=== PATIENT | female | born 1985 | race Caucasian/White ===

== ENCOUNTER 2017-10-13 12:13 | Inpatient (IN) | payer OTHER ==
[~2017-10-13 12:13] MED LIST: Bupivacaine 0.25% HCL 30 ML VIAL ONE; Bupivacaine HCl 0.5%/Epinephrine 1:200,000/PF 30 ml Vial ONE; Lidocaine 2% MPF 10 ML AMP (For Epidural Use) ONE; ePHEDrine/0.9% NaCl/PF SYRINGE 50 mg/10 ml ONE
[2017-10-13] MEDS ORDERED: NS w/ Oxytocin 10 units 500 ML IV SCH ×2 (20:08)
[2017-10-13] MEDS ORDERED: Ibuprofen 800 MG TAB PO PRN (20:08)
[2017-10-13] MEDS ORDERED: Misoprostol 200 MCG TAB PR PRN (20:08)
[2017-10-13] MEDS ORDERED: Promethazine HCl 25 MG/ML VIAL IM PRN (20:08)
[2017-10-13] MEDS ORDERED: Lidocaine 1% (PF) 30 ML VIAL SC PRN (20:08)
[2017-10-13] MEDS ORDERED: Acetaminophen 500 MG TAB PO PRN (20:08)
[2017-10-13] MEDS ORDERED: NS / Oxytocin 40 units/1000ml 1,000 ML IV PRN (20:08)
[2017-10-13] MEDS ORDERED: HYDROcodone/Acetaminophen 5/325 mg Tablet PO PRN (20:08)
[2017-10-13] MEDS ORDERED: Ondansetron HCl/PF 4 MG/2 ML Vial IVP PRN (20:08)
[2017-10-13] MEDS ORDERED: Acetaminophen/Codeine 30-300mg Tablet PO PRN (20:08)
[2017-10-13 20:30] LABS: Hemoglobin 11.6 g/dL (12.0-16.0); Mean Corpuscular HGB CONC 35.1 g/dL (32.0-36.0); Mean Corpuscular Hemoglobin 31.7 pg (27.0-31.0); Mean Corpuscular Volume 90.2 fL (78.0-98.0); Mean Platelet Volume 8.8 fL (7.4-10.4); Platelet Count 187 thou/uL (130-400); RBC Distribution Width 13.5 % (11.5-14.5); Red Blood Cell (RBC) Count 3.66 mill/uL (4.20-5.40)
[2017-10-13 21:25] LABS: Syphilis Antibody Nonreactive (Nonreactive); Syphilis Antibody Index 0.03 S/CO (<1.00 Non-Reactive)
[2017-10-13 22:54] LABS: HBSAg Index 0.42 S/CO (0-0.99); Hep B Surf Ag Non-Reactive S/CO (NonReactive)
[2017-10-14] MEDS ORDERED: DISCONTINUE ALL PREVIOUS NARCOTICS FS SCH (00:15)
[2017-10-14] MEDS ORDERED: Fentanyl 100 MCG/2 ML VIAL ONE (00:56)
[2017-10-14] MEDS ORDERED: ePHEDrine/0.9% NaCl/PF SYRINGE 50 mg/10 ml SLOW IVP PRN (01:14)
[2017-10-14] MEDS ORDERED: Acetaminophen 325 MG TAB PO PRN ×2 (01:14→15:56)
[2017-10-14] MEDS ORDERED: Promethazine HCl 25 MG/ML VIAL IM PRN ×2 (01:14→15:00)
[2017-10-14] MEDS ORDERED: Naloxone HCl 0.4 mg/ml Vial IVP PRN ×4 (01:14→15:00)
[2017-10-14] MEDS ORDERED: Lactated Ringer's 500 ML IV PRN (01:14)
[2017-10-14] MEDS ORDERED: Ondansetron HCl/PF 4 MG/2 ML Vial IVP PRN ×4 (01:14→15:56)
[2017-10-14] MEDS ORDERED: Eucerin (Mineral Oil/Petrolatum,White) 30 gm Jar TOP PRN ×2 (01:14→15:00)
[2017-10-14] MEDS ORDERED: diphenhydrAMINE 50 MG/ML VIAL IVP PRN ×2 (01:14→15:00)
[2017-10-14] MEDS ORDERED: Communication Order-Pharmacy FS SCH ×2 (01:15→15:00)
[2017-10-14] MEDS ORDERED: fentaNYL Citrate/PF 400 MCG, Bupivacaine 0.5% 20 ML in Sodium Chloride 0.9% 72 ML EPIDURAL SCH (01:15)
[2017-10-14] MEDS: Lactated Ringer's 1,000 ML IV SCH ×3 (01:26→11:01)
[2017-10-14] MEDS: Bupivacaine 0.75% 13.4 ML, fentaNYL Citrate/PF 400 MCG in Sodium Chloride 0.9% 78.6 ML EPIDURAL SCH ×2 (02:24→10:02)
[2017-10-14] MEDS ORDERED: Lidocaine 2% MPF 10 ML AMP (For Epidural Use) ONE (10:22)
[2017-10-14] MEDS ORDERED: Ondansetron HCl/PF 4 MG/2 ML Vial ONE (10:22)
[2017-10-14] MEDS ORDERED: CEFAZOLIN/Water 2 GM/20 ML SYRINGE SLOW IVP SCH (13:30)
[2017-10-14 14:42] LABS: Actual Bicarbonate (HCO3a) 20.6 mEq/L (22-28); Analyzer IN Cardio OR; Base Excess (BEa) -6.3 mEq/L (-2.0 to +3.0)
[2017-10-14] MEDS ORDERED: Oxytocin 10 UNITS/ML VIAL ONE (14:42)
[2017-10-14] MEDS ORDERED: Morphine PF 1 MG/ML SYR ONE ×2 (14:57)
[2017-10-14] MEDS ORDERED: HYDROmorphone 2 MG/ML VIAL SLOW IVP PRN (15:00)
[2017-10-14] MEDS ORDERED: Meperidine HCl/PF 25 MG/ML VIAL SLOW IVP PRN (15:00)
[2017-10-14] MEDS ORDERED: Promethazine HCl 25 MG SUPP PR PRN (15:00)
[2017-10-14] MEDS ORDERED: Ketorolac Tromethamine 30 MG/ML VIAL IVP PRN (15:00)
[2017-10-14] MEDS ORDERED: Naloxone HCl 0.4 mg/ml Vial IV PRN (15:00)
[2017-10-14] MEDS ORDERED: Ketorolac Tromethamine 30 MG/ML VIAL IVP SCH (15:00)
[2017-10-14] MEDS ORDERED: Bisacodyl 10 MG SUPP PR PRN (15:56)
[2017-10-14] MEDS ORDERED: Lactated Ringer's 1,000 ML IV SCH (15:56)
[2017-10-14] MEDS ORDERED: Lanolin Ointment 7 GM TUBE TOP PRN (15:56)
[2017-10-14] MEDS ORDERED: diphenhydrAMINE 25 MG CAP PO PRN (15:56)
[2017-10-14] MEDS ORDERED: Acetaminophen/Codeine 30-300mg Tablet PO PRN (15:56)
[2017-10-14] MEDS: Ibuprofen 800 MG TAB PO SCH (21:41)
[2017-10-14] MEDS: Ferrous Sulfate 325 MG TAB PO SCH (21:41)
[2017-10-14] MEDS: Docusate Calcium (SURFAK) 240 MG CAP PO SCH (21:43)
[2017-10-14] MEDS: Simethicone Chewable 80 MG TAB PO PRN (21:43)
--- NOTE | 2017-10-14 22:02 | OP ---
DATE OF SURGERY: 10/14/2017 PREOPERATIVE DIAGNOSIS: A 37-week intrauterine with intrauterine growth retardation and fe jordan distress. POSTOPERATIVE DIAGNOSIS: A 37-week intrauterine with intrauterine growth retardation and f etal distress, status post delivery. PROCEDURE: Primary low transverse section. SURGEON: Evie Barrett M.D. EXTRACORPOREAL CIRCULATION SPECIALIST: Dick Barrett M.D. ANESTHESIA: Spinal anesthetic. PROCEDURE IN DETAIL: The patient had progressed to 9 cm. Attempt made in the room to push past the cervix and due to repetitive deep variable and late decelerations which did recover between contracti ons, Pitocin had been turned off. Noted the patient continued to have these deep variable and late d ecelerations without progression of her labor and decision was made for primary . The patien t was taken to the operative room, prepped and draped in the usual sterile technique. A Pfannenstiel incision was made in the lower aspect of the abdomen. Subcutaneous tissue opened with sharp dissect ion. Fascia opened with sharp dissection. Peritoneum opened with sharp and blunt dissection. An Al exis O retractor was placed. A low transverse incision was made on the uterus and a viable female in yane was delivered from vertex presentation. Noted there was a tight nuchal cord x2, which was reduc ed. Cord was clamped and cut and was handed to care of the neonatology team. Noted the baby did breathe and cry at delivery and had good tone. A section of the cord was excised for cord gases and additional cord blood was obtained. The placenta was delivered manually and appeared intact. Ri ng forceps were placed over the edges of the hysterotomy and the hysterotomy was then closed in joaquin nuous fashion using 0 Monocryl. Sponge and instrument counts were correct. Hemostasis was adequate. There was no further bleeding from the incision and the Octavio O retractor was removed. Peritoneum was then closed in continuous fashion using 2-0 chromic and the fascia was then closed in continuous fashion using 0 Vicryl. Sponge and instrument counts were correct. Few bleeders were cauterized on subcutaneous tissue and skin was closed using nic. The patient tolerated the procedure to go to the recovery room in good condition. Noted estimated blood loss was 800 mL. Note the baby is a via ble small for gestational age female infant appears 37 weeks. Apgars 8 at 1 minute and 9 at 5 minute s. Weight 4 pounds 7 ounces, with noted bilateral cleft lip. Baby to go to NICU in good condition.
[2017-10-15] MEDS: HYDROcodone/Acetaminophen 5/325 mg Tablet PO PRN ×3 (03:27→21:39)
[2017-10-15] MEDS: Ibuprofen 800 MG TAB PO SCH ×4 (05:29→21:39)
[2017-10-15 06:10] LABS: Hemoglobin 10.4 g/dL (12.0-16.0); Mean Corpuscular HGB CONC 32.8 g/dL (32.0-36.0); Mean Corpuscular Hemoglobin 29.7 pg (27.0-31.0); Mean Corpuscular Volume 90.5 fL (78.0-98.0); Mean Platelet Volume 8.2 fL (7.4-10.4); Platelet Count 161 thou/uL (130-400); RBC Distribution Width 12.9 % (11.5-14.5); White Blood Cell (WBC) Count 13.4 thou/uL (4.8-10.8)
[2017-10-15] MEDS: Prenatal Vitamin 1 TAB PO SCH (08:51)
[2017-10-15] MEDS: Docusate Calcium (SURFAK) 240 MG CAP PO SCH ×2 (08:51→21:39)
[2017-10-15] MEDS: Ferrous Sulfate 325 MG TAB PO SCH (08:51)
[2017-10-15] MEDS: Simethicone Chewable 80 MG TAB PO PRN (21:40)
[2017-10-16] MEDS: Ferrous Sulfate 325 MG TAB PO SCH (00:11)
[2017-10-16] MEDS: Ibuprofen 800 MG TAB PO SCH (04:23)
[2017-10-16] MEDS: HYDROcodone/Acetaminophen 5/325 mg Tablet PO PRN (04:23)
[2017-10-16] MEDS: Simethicone Chewable 80 MG TAB PO PRN (09:26)
[2017-10-16] MEDS: Prenatal Vitamin 1 TAB PO SCH (09:26)
[2017-10-16] MEDS: Docusate Calcium (SURFAK) 240 MG CAP PO SCH (09:26)
[2017-10-16 09:53] VITALS: BP 138/76; TEMP 98.2
--- NOTE | 2017-10-16 09:55 | PDOC.PP ---
Post Progress Note Post Day #: 2 Subjective: Feeling well. Lochia minimal. Pain controlled with meds. Ambulating easily. Baby is being sent to [facility] today - mom wants to be D/C'd to be with the baby. PO intake tolerated: yes Flatus: yes Ambulation: yes Vital Signs (12 hours) Temp Pulse Resp BP BP BP 10/16/17 09:52 98.2 F 68 18 138/76 10/16/17 09:48 98.0 F 63 16 10/16/17 08:00 98.0 F 63 16 10/16/17 04:00 98.0 F 63 16 135/74 10/16/17 00:00 99.1 F 86 16 121/75 Weight Weight 154 lb - Physical Examination General: NAD Cardiovascular: no m/r/g, RRR Respiratory: clear to auscultation bilaterally, non-labored breathing Abdominal: + bowel sounds, lochia, no distention, appropriately TTP Skin: CS incision dry & intact, no rash Psychiatric: A&Ox3, normal affect Result Diagrams: 10/15/17 05:46 Additional Labs: Post Labs Blood Type AB POSITIVE 10/13/17 20:13 Hep Bs Antigen Non-Reactive S/CO (NonReactive) 10/13/17 20:13 (1) delivery w/o mention of indication, ruthie mcarthur Code(s): O82 - ENCOUNTER FOR DELIVERY WITHOUT INDICATION Status: Acute (2) IUGR (intrauterine growth restriction) affecting care of mother Code(s): O36.5990 - MATERN CARE FOR OTH OR SUSP POOR FETL GRTH, UNSP TRI, UNSP Status: Acute - Assessment/Plan PPD #2 Routine PP care Doing well post op from C/S D/C today to travel with baby to [facility] Meds sent by Evie Barrett from the office. F/U in 2 weeks.
== END 2017-10-16 11:30 | disposition home or self-care (01) | DRG 765 ==
LOC: L&D 19:18 → 3SW 10-14 17:50
PROVIDERS: ADMIT Family Medicine; ATTEND Family Medicine
PROC: 10D00Z1 Extraction of Products of Conception, Low, Open Approach (ICD-10-PCS; principal; 2017-10-14)
DX: O76 Abnormality in fetal heart rate and rhythm complicating labor and delivery (principal); O36.5930 Maternal care for other known or suspected poor fetal growth, third trimester, not applicable or unspecified; Z3A.37 37 weeks gestation of pregnancy; Z37.0 Single live birth; O13.4 Gestational [pregnancy-induced] hypertension without significant proteinuria, complicating childbirth; O24.420 Gestational diabetes mellitus in childbirth, diet controlled
CPT/HCPCS: 36415; 51702; 82805; 85027; 86780; 86850; 86900; 86901; 87340; C1726; J0670; J1200; J1885; J2001; J2274; J2405; J2590; J3010; J7050; S0020